=== PATIENT | male | born 1995 | race Caucasian/White ===

== ENCOUNTER 2018-11-03 21:59 | Emergency (ER) | payer OTHER ==
[2018-11-03 22:07] VITALS: BP 135/78; PULSE 61; TEMP 98.2; BMI 29.4
[2018-11-03] MEDS ORDERED: ERYTHROMYCIN 0.5% OPHTHALMIC OINTMENT 3.5 GM TUBE OS ONE (22:25)
[2018-11-03] MEDS ORDERED: ERYTHROMYCIN 0.5% OPHTHALMIC OINTMENT 3.5 GM TUBE ONE (22:27)
--- NOTE | 2018-11-03 22:27 | PDOC ---
History of Present Illness - General Chief Complaint: Eye Problem Stated Complaint: EYE STYE Time Seen by Provider: 11/03/18 22:16 History Source: Patient Exam Limitations: No Limitations - History of Present Illness Initial Comments: 11/03/18 22:23 HISTORY OF PRESENT ILLNESS: 23-year-old male denies medical history presents emergency department for evaluation of 4-5 days of left upper eyelid swelling. Patient denies any blurry vision or foreign body sensation in his eye. Patient does not remember any trauma and denies any fevers, chills. No recent travel or sick contacts. PAST MEDICAL HISTORY: Denies past medical history SURGICAL HISTORY: Denies ALLERGIES: No known drug allergies REVIEW OF SYSTEMS General/Constitutional: Denies fever or chills. Denies weakness, weight change. HEENT: see HPI Cardiovascular: Denies chest pain or shortness of breath. Respiratory: Denies cough, wheezing, or hemoptysis. Gastrointestinal: Denies nausea, vomiting, diarrhea or constipation. Denies rectal bleeding. Genitourinary: Denies dysuria, frequency, or change in urination. Musculoskeletal: Denies joint or muscle swelling or pain. Denies neck or back pain. Skin and breasts: Denies rash or easy bruising. Neurologic: Denies headache, vertigo, loss of consciousness, or loss of sensation. Psychiatric: Denies depression or anxiety. Endocrine: Denies increased thirst. Denies abnormal weight change. Hematologic/Lymphatic: Denies anemia, easy bleeding, or history of blood clots. Allergic/Immunologic: Denies hives or skin allergy. Denies latex allergy. PHYSICAL EXAM General Appearance: Well-appearing, appropriately dressed. No apparent distress , no intoxication. HEENT: EOMI, PERRLA, normal ENT inspection, normal voice, TMs normal, pharynx normal. No conjunctival pallor. No photophobia, scleral icterus. Erythema and swelling present to the inner surface of the left upper eyelid. Respiratory/Chest: Lungs CTAB. No shortness of breath, chest tenderness, respiratory distress, accessory muscle use. No crackles, rales, rhonchi, stridor , wheezing, dullness Cardiovascular: RRR. S1, S2. No JVD, murmur, bradycardia, tachycardia. Past History - Past Medical History Allergies/Adverse Reactions: Allergies Allergy/AdvReac Type Severity Reaction Status Date / Time No Known Allergies Allergy Verified 11/03/18 22:07 Home Medications: Ambulatory Orders NK [No Known Home Medication] 11/03/18 COPD: No - Suicide/Smoking/Psychosocial Hx Smoking History: Never smoked Have you smoked in the past 12 months: No Number of Cigarettes Smoked Daily: 20 Hx Alcohol Use: No Substance Use Type: None *Physical Exam - Vital Signs Last Vital Signs Temp Pulse Resp BP Pulse Ox 98.2 F 61 18 135/78 97 11/03/18 22:04 11/03/18 22:04 11/03/18 22:04 11/03/18 22:04 11/03/18 22:04 Moderate Sedation - Procedure Monitoring Vital Signs: Procedure Monitoring Vital Signs Temperature 98.2 F 11/03/18 22:04 Pulse Rate 61 11/03/18 22:04 Respiratory Rate 18 11/03/18 22:04 Blood Pressure 135/78 11/03/18 22:04 O2 Sat by Pulse Oximetry (%) 97 11/03/18 22:04 Medical Decision Making - Medical Decision Making 11/03/18 22:23 A/P: 23-year-old male with left eye hordeolum Supportive treatment including warm compresses and I moisturization been discussed with the patient was verbalizes understanding of discharge instructions I will give the patient a dose of erythromycin here to act as a lubricant. Discharge *DC/Admit/Observation/Transfer Diagnosis at time of Disposition: Hordeolum eyelid, internal Qualifiers: Laterality: left Eyelid: upper Qualified Code(s): H00.024 - Hordeolum internum left upper eyelid - Discharge Dispostion Disposition: HOME Condition at time of disposition: Stable Decision to Admit order: No - Referrals - Patient Instructions Additional Instructions: Apply warm compresses to your eye 3 times a day Apply lubricating ointment to her eye 3 times a day as needed. Return to emergency department for any worsening symptoms. - Post Discharge Activity
== END 2018-11-03 22:31 | disposition home or self-care (01) ==
LOC: JERFT 21:59
DX: H00.024 Hordeolum internum left upper eyelid (principal)
CPT/HCPCS: 99281-25